=== PATIENT | female | born 1955 | race Caucasian/White ===

== ENCOUNTER 2020-10-24 17:59 | Emergency (ER) | payer OTHER ==
[2020-10-24 18:56] LABS: BASOPHIL 0.8 % (0-2); EOSINOPHIL 4.9 % (0-7); HCT 41.2 % (37.0-47.0); HGB 13.6 g/dl (12.5-16.0); LYMPHOCYTE 39.5 % (15-48); MCH 31.4 pg (25.0-31.0); MCV 95.2 fL (78.0-100.0); MONOCYTE 5.2 % (0-12); MPV 11.2 fL (6.0-9.5); NEUTROPHIL 49.3 % (41-80); NRBC 0; PLT 207 K/uL (150-400); RBC 4.33 M/uL (4.20-5.40); RDW 13.3 % (11.5-14.0); WBC 7.5 K/uL (4.0-10.5)
[2020-10-24 19:01] LABS: INR 1.04 (0.9-1.2); PROTHROMBIN TIME 12.9 SECONDS (11.4-13.6); PTT 30.1 SECONDS (22.2-34.7)
[2020-10-24 19:10] LABS: ALBUMIN 3.7 g/dL (3.4-5.0); BILIRUBIN - TOTAL 0.9 mg/dL (0.2-1.0); CREATININE 0.9 mg/dL (0.51-0.95); GLOBULIN (CALCULATION) 3.3 g/dL; POTASSIUM 3.2 mmol/L (3.5-5.1)
== END 2020-10-24 20:13 | disposition home or self-care (01) ==
LOC: FER 17:59
PROVIDERS: Nurse Practitioner Family
DX: F41.9 Anxiety disorder, unspecified (principal); I10 Essential (primary) hypertension; Z86.73 Personal history of transient ischemic attack (TIA), and cerebral infarction without residual deficits; Z79.82 Long term (current) use of aspirin; Z79.899 Other long term (current) drug therapy; Z79.02 Long term (current) use of antithrombotics/antiplatelets
CPT/HCPCS: 36415; 71045; 80053; 84484; 85025; 85610; 85730; 93005